=== PATIENT | male | born 2000 | race Caucasian/White ===

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

== ENCOUNTER 2020-11-21 14:50 | Emergency (ER) | payer OTHER, SELFPAY ==
[2020-11-21 14:50] VITALS: BP 119/59; PULSE 77; RESP 15; TEMP 36.4; O2SAT 98; BMI 22.8
--- NOTE | 2020-11-21 15:10 | US_ITS ---
STUDY: ABDOMINAL ULTRASOUND - RIGHT UPPER QUADRANT REASON FOR VISIT: Male, 20 years old. Right upper quadrant pain. TECHNIQUE: Ultrasound evaluation of the right upper quadrant was performed with real-time and static peres-scale imaging. TECHNICAL QUALITY: Adequate. COMPARISON: None. FINDINGS: Liver: The liver measures 14.7 cm. There is normal echogenicity of the liver. The bile ducts are within normal limits. There is hepatic color flow. The direction of portal flow is hepatopetal. There is no demonstrated mass lesion. Gallbladder: There is partially contracted. The gallbladder wall measures 2 mm. There is a negative sonographic Johnson''s sign. There is no pericholecystic fluid. There are no gallstones. Common Bile Duct (C.B.D.): The common bile duct measures 3 mm. Pancreas: Normal size of the head, body and tail of the pancreas. There is normal echogenicity of the pancreas. There is no demonstrated pancreatic mass or cyst. Right Kidney: Normal size of the right kidney. The right kidney measures 10.3 cm. Normal renal cortex. There is no demonstrated renal mass or cyst. There is no right hydronephrosis. US/Gallbladder IMPRESSION: Normal right upper quadrant ultrasound examination. Electronically Signed: Colin Ovalles MD at 16:37 EDT Tel , Service support ,
[2020-11-21 15:30] LABS: Absolute Lymphocyte Count 1.66 X10^3/uL (0.83-4.51); Absolute Neutrophil Count 4.1 X10^3/uL (2.0-7.7); Basophil# 0.04 X10^3/uL; Basophil% 0.6 % (0-1); Eosinophil# 0.33 X10^3/uL; Hematocrit 44.3 % (40-54); Hemoglobin 15.4 g/dL (13.0-16.5); Lymphocyte # 1.66 X10^3/ul (0.83-4.51); Lymphocyte % 24.9 % (19-41); Mean Corp Hgb Conc 34.8 g/dL (32-36); Mean Corpuscular Hgb 31.1 pg (27.0-32.0); Mean Corpuscular Volume 89.5 fL (80-94); Mean Platelet Vol. 10.3 fl (6.2-12.0); Monocyte# 0.49 X10^3/uL; Monocyte% 7.4 % (0-10); NRBC Flagged by Analyzer 0 % (0-5); Neutrophil # 4.11 X10^3/uL (2.7-7.7); Neutrophil % 61.6 % (47-70); Platelet Count 224 K/mm3 (150-450); RBC Distribution Width SD 39.2 fl (35.1-43.9); Red Blood Count 4.95 M/mm3 (4.6-6.2); White Blood Count 6.7 K/mm3 (4.4-11.0)
[2020-11-21 15:52] LABS: AST(SGOT) 20 U/L (15-37); Alanine Aminotransfer ALT/SGPT 16 U/L (16-61); Albumin, Serum 3.8 g/dL (3.2-5.0); Alkaline Phosphatase 74 U/L (45-117); Anion Gap 4 (5-15); BUN 16 mg/dL (7-18); BUN/Creat Ratio 13.8 RATIO (10-20); Calcium,Total 8.9 mg/dL (8.5-10.1); Chloride 105 mmol/L (98-107); Creatinine, Serum 1.16 mg/dL (0.70-1.30); EST Glomerular Filtration Rate 85 mL/min (>60); Est Glom Filt Rate - Afr Amer 103 mL/min (>60); Estimated Creatinine Clearance 97.76 ml/min; Globulin 3.7 g/dL (2.2-4.2); Glucose 80 mg/dL (74-106); Lipase 85 U/L (73-393); Potassium 3.7 mmol/L (3.5-5.1); Protein, Total 7.5 g/dL (6.4-8.2); Sodium Level 138 mmol/L (136-145)
--- NOTE | 2020-11-21 16:21 | EX.ED.DYSGE1 ---
HPI History of Present Illness Chief Complaint: Abd Pain Informant: patient Narrative Narrative: Patient is a 20-year-old previously healthy male who presents to the emergency department for right upper quadrant abdominal pain. He states he gets this intermittently over the past 3 months. He has not paid attention to what is made this better or worse today. Today he had around a 1 hour episode of sharp stabbing pain in the right upper quadrant. He rated this as an 8 out of 10. He only has mild discomfort at this time. He does get nauseous with the pain. No vomiting. No fevers or chills. No change in bowel movements. No urinary symptoms. No previous abdominal surgeries. Today it was associated with eating his lunch. He has not been taking anything for this. He denies any chest pain or shortness of breath. No back pain. PFSH PFS Home Medications fexofenadine 60 mg PO DAILY 06/05/19 [History Last Taken Unknown] Allergy/AdvReac Type Severity Reaction Status Date / Time amoxicillin Allergy Hives Verified 11/21/20 14:52 Social History Smoking Status: Never smoker ROS ROS ED Constitutional Constitutional ED: Denies chills or fever(s) Eyes Eyes: Denies change in vision ENT ENT ED: Denies epistaxis or rhinorrhea Cardiovascular Cardiovascular: Denies chest pain or palpitations Respiratory/Chest Respiratory/Chest: Denies cough, dyspnea or dyspnea on exertion Gastrointestinal Gastrointestinal: Reports abdominal pain and nausea; Denies constipation, diarrhea, melena or vomiting Genitourinary Genitourinary ED: Denies dysuria, hematuria or urinary frequency Musculoskeletal Musculoskeletal: Denies back pain or neck pain Integumentary Denies rash Neurologic Neurologic: Denies dizziness, headache(s) or weakness EXAM Physical Exam Const Vital Signs: 11/21/20 14:50 Temperature 97.6 F L Temperature Source Temporal Pulse Rate 77 Respiratory Rate 15 Blood Pressure 119/59 L Blood Pressure Mean 79 Pulse Ox 98 Oxygen Delivery Method Room Air Positive well nourished and well developed General Appearance ED: well developed and NAD HEENT Reports normocephalic and head/scalp atraumatic Eyes PERRL and EOMs intact bilaterally Neck supple Resp normal respiratory effort and clear to auscultation bilaterally Auscultation: Negative for rales, rhonchi or wheezes Cardio regular rate, regular rhythm and no murmurs GI normal to inspection, nondistended, normoactive bowel sounds and non-tender GI Narrative: Negative Johnson sign. No reproducible pain at this time. No McBurney's point tenderness. Palpation: soft; Negative for guarding or rebound tenderness present Back/Spine no CVA tenderness Extremity normal to inspection Neuro no sensory deficits noted Sensorium / Orientation: alert Motor Exam: strength 5/5 throughout Psych mental status grossly normal Skin no rashes or lesions noted MDM MDM MDM Narrative Medical decision making narrative: Patient presents to the ED for intermittent right upper quadrant abdominal pain. He had episode today. His symptoms are currently resolving. There was concern that he had gallbladder issues so he presented to the emergency department for ultrasound. Basic lab work will be checked as well as ultrasound of the right upper quadrant. Patient's lab work-up did not reveal any significant acute abnormality. He does not have a high white blood cell count. Liver enzymes within normal limits. Lipase is normal. He has been asymptomatic throughout ED stay. Ultrasound did not show any acute abnormality. Gallbladder is mildly contracted. We will have him follow-up with his PCP. Patient to monitor if certain foods seem to set this off in the future. Return precautions are reviewed with him. He understands and is agreeable with plan. Discharged home in stable condition. All questions were answered. Lab Data Labs: Laboratory Results - last 24 hr 11/21/20 11/21/20 15:20 15:20 WBC 6.7 RBC 4.95 Hgb 15.4 Hct 44.3 MCV 89.5 MCH 31.1 MCHC 34.8 RDW Std Deviation 39.2 RDW Coeff of Corey 12.0 Plt Count 224 MPV 10.3 Immature Gran % (Auto) 0.500 Neut % (Auto) 61.6 Lymph % (Auto) 24.9 [place] % (Auto) 7.4 Eos % (Auto) 5.0 Baso % (Auto) 0.6 Absolute Neuts (auto) 4.1 Absolute Lymphs (auto) 1.66 Nucleated RBC % 0 Sodium 138 Potassium 3.7 Chloride 105 Carbon Dioxide 29.0 Anion Gap 4 L BUN 16 Creatinine 1.16 Estim Creat Clear Calc 97.76 Est GFR (MDRD) Af Amer 103 Est GFR (MDRD) Non-Af 85 BUN/Creatinine Ratio 13.8 Glucose 80 Calcium 8.9 Total Bilirubin 0.90 AST 20 ALT 16 Alkaline Phosphatase 74 Total Protein 7.5 Albumin 3.8 Globulin 3.7 Albumin/Globulin Ratio 1.0 Lipase 85 Radiography Diagnostic Testing: Radiology Impression Gallbladder Ultrasound 11/21/20 15:10 IMPRESSION: Normal right upper quadrant ultrasound examination. Electronically Signed: Colin Ovalles MD at 16:37 EDT Tel , Service support , Discharge Plan Triage Chief Complaint: Abd Pain ED Provider: Rod Maravilla Dx/Rx/DC Orders Clinical Impression: Abdominal pain Instructions: Abdominal Pain Prescriptions: No Action fexofenadine 60 MG tablet 60 mg PO DAILY RF: 0 Primary Care Provider: Miguel Olmos Referrals: Miguel Olmos MD [Primary Care Provider] - 3-5 Days if not improving Disposition Disposition: Home, Self Care
== END 2020-11-21 16:54 | disposition home or self-care (01) ==
PROVIDERS: Emergency Provider Emergency Medicine; PCP Pediatrics
DX: R10.11 Right upper quadrant pain (principal)
CPT/HCPCS: 76705; 80053; 83690; 85025; 99282

== ENCOUNTER → 2021-02-17 10:01 | Outpatient (CLI) | payer OTHER, SELFPAY | PROVIDERS: PCP Pediatrics; Visit Provider Physician Assistant Surgical | DX: U07.1 COVID-19 (principal) | CPT/HCPCS: 87635; U0005; U0003 ==